=== PATIENT | male | born 1960 | race Caucasian/White ===

== ENCOUNTER 2017-05-19 13:09 | Inpatient (IN) | payer OTHER ==
[~2017-05-19] VITALS: Ht 182.9 cm; Wt 97.5 kg
[2017-05-19 14:18] LABS: HEMATOCRIT 41.9 % (38.0-50.0); MCH 26.4 PG (29.0-34.0); MCHC 32.9 G/DL (30.0-36.0); MCV 80.3 FL (86-99); RBC DIS.WIDTH-CV 16.5 % (11.8-14.6); RBC DIS.WIDTH-SD 47.6 % (39-53); RED BLOOD COUNT 5.22 M/uL (4.00-5.50); WHITE BLOOD COUNT 15.9 K/uL (4.1-10.2)
[2017-05-19] MEDS ORDERED: LOSARTAN POTASS50 MG PO (14:25)
[2017-05-19] MEDS ORDERED: LIPITOR40 MG PO (14:26)
[2017-05-19] MEDS ORDERED: METOPROLOL TART25 MG PO (14:27)
[2017-05-19] MEDS ORDERED: LASIX40 MG PO (14:27)
[2017-05-19] MEDS ORDERED: KLOR-CON20 MEQ PO (14:28)
[2017-05-19] MEDS ORDERED: WELLBUTRIN SR150 MG PO (14:28)
[2017-05-19] MEDS ORDERED: NAPROXEN500 MG PO (14:29)
[2017-05-19] MEDS ORDERED: OXYCODONE HCL30 MG PO (14:29)
[2017-05-19] MEDS ORDERED: DURAGESIC100 MCG TD (14:30)
[2017-05-19] MEDS ORDERED: DOLOPHINE HCL10 MG PO (14:31)
[2017-05-19] MEDS ORDERED: KEFLEX500 MG PO (14:32)
[2017-05-19 14:33] LABS: INTER. NORMALIZED RATIO 1.5; PROTHROMBIN TIME 15.3 (9.2-11.2); PTT 44.3 (25-32)
[2017-05-19 14:34] LABS: TROP-I INTERPRETATION NEGATIVE; TROPONIN-I 0.01 ng/mL (0.0-0.30)
[2017-05-19] MEDS ORDERED: BACTRIM,SEPT1 TABLET PO (14:34)
[2017-05-19] MEDS ORDERED: DOXYCYCLINE MO100 MG PO (14:35)
[2017-05-19 14:36] LABS: CHLORIDE 102 mEq/L (99-109); POTASSIUM 4.7 mEq/L (3.7-5.4); SODIUM 136 mEq/L (136-147)
[2017-05-19 14:39] LABS: GLUCOSE 106 mg/dL (70-99)
[2017-05-19 14:40] LABS: ANION GAP 16 MEQ/L (2-14); TOTAL BILIRUBIN 0.9 mg/dL (0.0-1.0)
[2017-05-19 14:42] LABS: ALKALINE PHOSPHATASE 103 IU/L (3-129); GFR ESTIMATE (CALCULATED) 42 mL/min/
[2017-05-19 14:43] LABS: UREA NITROGEN (BUN) 51 mg/dL (9-23)
[2017-05-19 16:28] LABS: ABS NEUTROPHIL COUNT 13.4; ANISOCYTOSIS 1+; ATYPICAL LYMPHOCYTE 1.8 %; BAND NEUTROPHILS 30.7 % (0-8.0); BURR CELLS 1+; EOSINOPHIL ABS CT 0; HYPOCHROMASIA 1+; INSTRUMENT ABS NEUTROPHIL CT 13.7 K/uL; LYMPHOCYTES 10.5 % (15.0-45.0); MACROCYTES 1+; MICROCYTOSIS 1+; PLAT.SUFFICIENCY INCREASED; PLATELET CLUMPS PRESENT - PLATELET COUNT APPEARS INCREASED; PLATELET COUNT UNABLE TO REPORT K/uL (156-360); POIKILOCYTOSIS 1+; POLYCHROMASIA 1+; SEG.NEUTROPHILS 53.5 % (46.0-76.0)
[2017-05-20] VITALS (23 sets, daily range): BP systolic 100–145; BP diastolic 56–75
[2017-05-20 02:36] LABS: CHLORIDE 111 mEq/L (99-109); MCH 26.1 PG (29.0-34.0); MCHC 32.1 G/DL (30.0-36.0); MCV 81.3 FL (86-99); MEAN PLAT.VOLUME 9.8 uM^3 (9.0-12.4); PLATELET COUNT 368 K/uL (156-360); RBC DIS.WIDTH-CV 16.6 % (11.8-14.6); RBC DIS.WIDTH-SD 49.2 % (39-53); SODIUM 138 mEq/L (136-147); WHITE BLOOD COUNT 14.7 K/uL (4.1-10.2)
[2017-05-20 02:37] LABS: MAGNESIUM 1.1 mg/dL (1.3-2.7); RED BLOOD COUNT 4.06 M/uL (4.00-5.50)
[2017-05-20 02:38] LABS: INTER. NORMALIZED RATIO 1.4; PROTHROMBIN TIME 14.8 (9.2-11.2); PTT 46.7 (25-32)
[2017-05-20 02:40] LABS: ANION GAP 7 MEQ/L (2-14)
[2017-05-20 02:43] LABS: UREA NITROGEN (BUN) 31 mg/dL (9-23)
[2017-05-20 02:47] LABS: GFR ESTIMATE (CALCULATED) > 59 mL/min/; GLUCOSE 69 mg/dL (70-99)
[2017-05-20 03:21] LABS: BASE EXCESS -6.2 mEq/L (-3 to +3); BICARBONATE 21.4 mEq/L (22-26); CARBOXY HGB 1.4 % (0-5); METHEMOGLOBIN 1.8 % (0-1.5); PCO2 51 mm Hg (35-45); PO2 84 mm Hg (80-100)
[2017-05-20 03:24] LABS: COMMENTS - BLOOD GASES A+C+; SITE LR; pH 7.23 (7.35-7.45)
[2017-05-20 03:25] LABS: DEVICE VENT; FI02 40 %; MECHANICAL RATE 16 resp/min; MODE AC; PEEP 5 CM/H20; TIDAL VOLUME 500 ML; TOTAL RESP RATE 16 resp/min
[2017-05-20 04:09] LABS: METH RESISTANT S AUREUS PCR NEGATIVE (NEGATIVE)
[2017-05-20 04:15] LABS: PROBE CHECK PASS; SPECIMEN PROCESSING CONTROL PASS
[2017-05-20 04:44] LABS: BASE EXCESS -4.7 mEq/L (-3 to +3); BICARBONATE 20.4 mEq/L (22-26); CARBOXY HGB 1.6 % (0-5); COMMENTS - BLOOD GASES A+C+; METHEMOGLOBIN 1.4 % (0-1.5); PCO2 37 mm Hg (35-45); PO2 79 mm Hg (80-100); SITE LR; pH 7.35 (7.35-7.45)
[2017-05-20 04:45] LABS: DEVICE VENT; FI02 40 %; MECHANICAL RATE 18 resp/min; MODE AC; PEEP 5 CM/H20; TIDAL VOLUME 600 ML; TOTAL RESP RATE 18 resp/min
[2017-05-20 10:59] LABS: ALKALINE PHOSPHATASE 75 IU/L (3-129)
[2017-05-20 11:06] LABS: TOTAL BILIRUBIN 0.7 mg/dL (0.0-1.0)
[2017-05-20 16:43] LABS: HEMATOCRIT 28.1 % (38.0-50.0); MCHC 33.1 G/DL (30.0-36.0); MCV 81.7 FL (86-99); MEAN PLAT.VOLUME 10.2 uM^3 (9.0-12.4); PLATELET COUNT 312 K/uL (156-360); RBC DIS.WIDTH-CV 16.7 % (11.8-14.6); RBC DIS.WIDTH-SD 49.3 % (39-53); RED BLOOD COUNT 3.44 M/uL (4.00-5.50)
[2017-05-20 17:02] LABS: ANION GAP 6 MEQ/L (2-14); CHLORIDE 110 MEQ/L (99-109); GFR ESTIMATE (CALCULATED) > 59 mL/min/; MAGNESIUM 1.8 mg/dl (1.3-2.7); POTASSIUM 3.3 MEQ/L (3.7-5.4); SAMPLE HEMOLYSIS CHECK 0; SAMPLE ICTERIC CHECK 0; SAMPLE LIPEMIA CHECK 0; SODIUM 139 MEQ/L (136-147); UREA NITROGEN (BUN) 23 mg/dL (9-23)
[2017-05-20 17:08] LABS: GLUCOSE 139 mg/dL (70-99)
[2017-05-20 19:17] LABS: POINT-OF-CARE METER ID UU13113748
[2017-05-20 20:38] LABS: POINT-OF-CARE METER ID UU13113748
[2017-05-21] VITALS (18 sets, daily range): BP systolic 131–155; BP diastolic 65–77
[2017-05-21 00:49] LABS: POINT-OF-CARE METER ID UU13113748
[2017-05-21 05:30] LABS: HEMATOCRIT 27.7 % (38.0-50.0); MCH 26.3 PG (29.0-34.0); MCHC 32.9 G/DL (30.0-36.0); MCV 80.1 FL (86-99); MEAN PLAT.VOLUME 10.3 uM^3 (9.0-12.4); NRBC (%) 0.2 /100 WBC (0-0); PLATELET COUNT 307 K/uL (156-360); RBC DIS.WIDTH-CV 16.4 % (11.8-14.6); RBC DIS.WIDTH-SD 47.8 % (39-53); RED BLOOD COUNT 3.46 M/uL (4.00-5.50); WHITE BLOOD COUNT 9.6 K/uL (4.1-10.2)
[2017-05-21 05:35] LABS: INTER. NORMALIZED RATIO 1.2; PROTHROMBIN TIME 12.7 (9.2-11.2)
[2017-05-21 05:44] LABS: ANION GAP 6 MEQ/L (2-14); CHLORIDE 111 MEQ/L (99-109); GFR ESTIMATE (CALCULATED) > 59 mL/min/; MAGNESIUM 1.8 mg/dl (1.3-2.7); POTASSIUM 3.6 MEQ/L (3.7-5.4); SAMPLE HEMOLYSIS CHECK 0; SAMPLE ICTERIC CHECK 0; SAMPLE LIPEMIA CHECK 0; SODIUM 142 MEQ/L (136-147); UREA NITROGEN (BUN) 19 mg/dL (9-23)
[2017-05-21 05:48] LABS: GLUCOSE 76 mg/dL (70-99)
[2017-05-21 11:14] LABS: POINT-OF-CARE METER ID UU13113731
[2017-05-22] VITALS (10 sets, daily range): BP systolic 130–171; BP diastolic 61–85
[2017-05-22 05:56] LABS: HEMATOCRIT 25.9 % (38.0-50.0); MCH 27.2 PG (29.0-34.0); MCV 79.9 FL (86-99); PLATELET COUNT 297 K/uL (156-360); RBC DIS.WIDTH-CV 16.5 % (11.8-14.6); RBC DIS.WIDTH-SD 47.8 % (39-53); RED BLOOD COUNT 3.24 M/uL (4.00-5.50); WHITE BLOOD COUNT 11.4 K/uL (4.1-10.2)
[2017-05-22 06:17] LABS: ALKALINE PHOSPHATASE 61 IU/L (3-129); ANION GAP 10 MEQ/L (2-14); CHLORIDE 111 MEQ/L (99-109); GFR ESTIMATE (CALCULATED) > 59 mL/min/; GLUCOSE 87 mg/dL (70-99); POTASSIUM 3.7 MEQ/L (3.7-5.4); SAMPLE HEMOLYSIS CHECK 0; SAMPLE ICTERIC CHECK 0; SAMPLE LIPEMIA CHECK 0; SODIUM 145 MEQ/L (136-147); TOTAL BILIRUBIN 0.5 MG/DL (0.0-1.0); UREA NITROGEN (BUN) 19 mg/dL (9-23)
[2017-05-22 06:21] LABS: INTER. NORMALIZED RATIO 1.2
[2017-05-22 06:22] LABS: ANION GAP 11 MEQ/L (2-14); C-REACTIVE PROTEIN 183.8 MG/L (0-10); CHLORIDE 110 MEQ/L (99-109); GFR ESTIMATE (CALCULATED) > 59 mL/min/; GLUCOSE 89 mg/dL (70-99); MAGNESIUM 2.1 mg/dl (1.3-2.7); POTASSIUM 3.3 MEQ/L (3.7-5.4); SAMPLE HEMOLYSIS CHECK 0; SAMPLE ICTERIC CHECK 0; SAMPLE LIPEMIA CHECK 0; SODIUM 145 MEQ/L (136-147); UREA NITROGEN (BUN) 20 mg/dL (9-23)
[2017-05-23] VITALS (8 sets, daily range): BP systolic 144–165; BP diastolic 50–74
[2017-05-23 06:04] LABS: HEMATOCRIT 25.7 % (38.0-50.0); MCH 26.5 PG (29.0-34.0); MCHC 33.5 G/DL (30.0-36.0); MCV 79.3 FL (86-99); MEAN PLAT.VOLUME 9.9 uM^3 (9.0-12.4); PLATELET COUNT 272 K/uL (156-360); RBC DIS.WIDTH-CV 16.3 % (11.8-14.6); RBC DIS.WIDTH-SD 46.3 % (39-53); RED BLOOD COUNT 3.24 M/uL (4.00-5.50); WHITE BLOOD COUNT 11.3 K/uL (4.1-10.2)
[2017-05-23 06:14] LABS: INTER. NORMALIZED RATIO 1.2; PROTHROMBIN TIME 12.2 (9.2-11.2)
[2017-05-23 06:30] LABS: ANION GAP 9 MEQ/L (2-14); CHLORIDE 111 MEQ/L (99-109); GFR ESTIMATE (CALCULATED) > 59 mL/min/; GLUCOSE 86 mg/dL (70-99); POTASSIUM 3.1 MEQ/L (3.7-5.4); SAMPLE HEMOLYSIS CHECK 0; SAMPLE ICTERIC CHECK 0; SAMPLE LIPEMIA CHECK 0; SODIUM 147 MEQ/L (136-147); UREA NITROGEN (BUN) 21 mg/dL (9-23)
[2017-05-24] VITALS (7 sets, daily range): BP systolic 134–169; BP diastolic 67–87
[2017-05-24 06:25] LABS: HEMATOCRIT 27.1 % (38.0-50.0); MCH 25.7 PG (29.0-34.0); MCHC 32.5 G/DL (30.0-36.0); MEAN PLAT.VOLUME 9.8 uM^3 (9.0-12.4); NRBC (%) 0.2 /100 WBC (0-0); PLATELET COUNT 280 K/uL (156-360); RBC DIS.WIDTH-CV 16.2 % (11.8-14.6); RBC DIS.WIDTH-SD 46.4 % (39-53); RED BLOOD COUNT 3.43 M/uL (4.00-5.50); WHITE BLOOD COUNT 14.8 K/uL (4.1-10.2)
[2017-05-24 06:52] LABS: INTER. NORMALIZED RATIO 1.1; PROTHROMBIN TIME 11.6 (9.2-11.2)
[2017-05-24 06:58] LABS: ANION GAP 10 MEQ/L (2-14); CHLORIDE 110 MEQ/L (99-109); GFR ESTIMATE (CALCULATED) > 59 mL/min/; GLUCOSE 91 mg/dL (70-99); POTASSIUM 3.3 MEQ/L (3.7-5.4); SAMPLE HEMOLYSIS CHECK 0; SAMPLE ICTERIC CHECK 0; SAMPLE LIPEMIA CHECK 0; SODIUM 145 MEQ/L (136-147); UREA NITROGEN (BUN) 19 mg/dL (9-23)
[2017-05-25] VITALS: BP 136/68
[2017-05-25 03:00] VITALS: BP 162/74
[2017-05-25 05:47] LABS: EOSINOPHIL (%) 3.6 % (0-5); EOSINOPHIL COUNT 0.6 K/uL (0-0.3); HEMATOCRIT 26.8 % (38.0-50.0); IMMATURE GRANULOCYTE (%) 3.3 % (0.0-0.7); IMMATURE GRANULOCYTE COUNT 0.5 K/uL; INSTRUMENT ABS NEUTROPHIL CT 11.1 K/uL; LYMPHOCYTE COUNT 1.7 K/uL (1.0-2.8); MCH 26.3 PG (29.0-34.0); MCHC 33.2 G/DL (30.0-36.0); MCV 79.3 FL (86-99); MEAN PLAT.VOLUME 9.9 uM^3 (9.0-12.4); MONOCYTE (%) 11.6 % (3-12); MONOCYTE COUNT 1.8 K/uL (0-0.8); NEUTROPHIL (%) 70.7 % (45-76); NEUTROPHIL COUNT 11.1 K/uL (1.8-6.4); NRBC (%) 0.2 /100 WBC (0-0); PLATELET COUNT 289 K/uL (156-360); RBC DIS.WIDTH-CV 16.2 % (11.8-14.6); RBC DIS.WIDTH-SD 46.3 % (39-53); RED BLOOD COUNT 3.38 M/uL (4.00-5.50); WHITE BLOOD COUNT 15.6 K/uL (4.1-10.2)
[2017-05-25 06:31] LABS: ANION GAP 9 MEQ/L (2-14); CHLORIDE 109 MEQ/L (99-109); GFR ESTIMATE (CALCULATED) > 59 mL/min/; GLUCOSE 106 mg/dL (70-99); POTASSIUM 3.6 MEQ/L (3.7-5.4); SAMPLE HEMOLYSIS CHECK 0; SAMPLE ICTERIC CHECK 0; SAMPLE LIPEMIA CHECK 0; SODIUM 140 MEQ/L (136-147); TOTAL BILIRUBIN 0.5 MG/DL (0.0-1.0); UREA NITROGEN (BUN) 20 mg/dL (9-23)
[2017-05-25 06:32] LABS: ALKALINE PHOSPHATASE 85 IU/L (3-129); ANION GAP 9 MEQ/L (2-14); CHLORIDE 110 MEQ/L (99-109); DIRECT BILIRUBIN 0.2 mg/dL (0.0-0.3); GFR ESTIMATE (CALCULATED) > 59 mL/min/; GLUCOSE 104 mg/dL (70-99); MAGNESIUM 2.3 mg/dl (1.3-2.7); POTASSIUM 3.6 MEQ/L (3.7-5.4); PREALBUMIN 5.8 mg/dL (10-40); SAMPLE HEMOLYSIS CHECK 0; SAMPLE ICTERIC CHECK 0; SAMPLE LIPEMIA CHECK 0; SODIUM 141 MEQ/L (136-147); TOTAL BILIRUBIN 0.5 MG/DL (0.0-1.0); TRIGLYCERIDES 89 MG/DL (Normal: <150); UREA NITROGEN (BUN) 20 mg/dL (9-23)
[2017-05-25 06:46] LABS: ALKALINE PHOSPHATASE 114 IU/L (3-129)
[2017-05-25 07:52] VITALS: BP 136/78
[2017-05-25 12:30] VITALS: BP 133/70
[2017-05-25 12:50] LABS: C DIFF TOXIN NEGATIVE (NEGATIVE)
[2017-05-25 12:57] LABS: PROBE CHECK PASS; SPECIMEN PROCESSING CONTROL PASS
[2017-05-25 16:00] VITALS: BP 132/68
[2017-05-25 19:40] VITALS: BP 120/74
[2017-05-26] VITALS (8 sets, daily range): BP systolic 134–151; BP diastolic 68–81
[2017-05-26 05:26] LABS: HEMATOCRIT 28.8 % (38.0-50.0); MCH 25.8 PG (29.0-34.0); MCV 78.3 FL (86-99); MEAN PLAT.VOLUME 9.8 uM^3 (9.0-12.4); NRBC (%) 0.1 /100 WBC (0-0); PLATELET COUNT 347 K/uL (156-360); RBC DIS.WIDTH-CV 16.2 % (11.8-14.6); RBC DIS.WIDTH-SD 45.7 % (39-53); RED BLOOD COUNT 3.68 M/uL (4.00-5.50); WHITE BLOOD COUNT 19.3 K/uL (4.1-10.2)
[2017-05-26 05:51] LABS: ANION GAP 9 MEQ/L (2-14); CHLORIDE 109 MEQ/L (99-109); GFR ESTIMATE (CALCULATED) > 59 mL/min/; GLUCOSE 112 mg/dL (70-99); MAGNESIUM 2.2 mg/dl (1.3-2.7); POTASSIUM 3.9 MEQ/L (3.7-5.4); SAMPLE HEMOLYSIS CHECK 0; SAMPLE ICTERIC CHECK 0; SAMPLE LIPEMIA CHECK 0; SODIUM 137 MEQ/L (136-147); UREA NITROGEN (BUN) 16 mg/dL (9-23)
[2017-05-27 04:32] VITALS: BP 130/78
[2017-05-27 05:25] LABS: HEMATOCRIT 29.6 % (38.0-50.0); MCH 25.9 PG (29.0-34.0); MCHC 33.1 G/DL (30.0-36.0); MCV 78.1 FL (86-99); MEAN PLAT.VOLUME 10.4 uM^3 (9.0-12.4); NRBC (%) 0.2 /100 WBC (0-0); PLATELET COUNT 415 K/uL (156-360); RBC DIS.WIDTH-CV 16.2 % (11.8-14.6); RBC DIS.WIDTH-SD 45.4 % (39-53); RED BLOOD COUNT 3.79 M/uL (4.00-5.50); WHITE BLOOD COUNT 21.7 K/uL (4.1-10.2)
[2017-05-27 05:59] LABS: ANION GAP 11 MEQ/L (2-14); CHLORIDE 108 MEQ/L (99-109); GFR ESTIMATE (CALCULATED) > 59 mL/min/; GLUCOSE 114 mg/dL (70-99); MAGNESIUM 2.2 mg/dl (1.3-2.7); POTASSIUM 4.2 MEQ/L (3.7-5.4); SAMPLE HEMOLYSIS CHECK 0; SAMPLE ICTERIC CHECK 0; SAMPLE LIPEMIA CHECK 0; SODIUM 138 MEQ/L (136-147); UREA NITROGEN (BUN) 16 mg/dL (9-23)
[2017-05-27 07:56] VITALS: BP 130/77
[2017-05-27 11:31] LABS: URINE UREA NITROGEN 16933 MG/24 HR
[2017-05-27 11:49] VITALS: BP 112/68
[2017-05-27 15:16] VITALS: BP 122/74
[2017-05-27 19:20] VITALS: BP 137/25
[2017-05-28 00:10] VITALS: BP 133/76
[2017-05-28 05:00] VITALS: BP 139/69
[2017-05-28 06:03] LABS: HEMATOCRIT 28.8 % (38.0-50.0); MCH 26.2 PG (29.0-34.0); MCHC 33.3 G/DL (30.0-36.0); MCV 78.5 FL (86-99); MEAN PLAT.VOLUME 10.5 uM^3 (9.0-12.4); PLATELET COUNT 459 K/uL (156-360); RBC DIS.WIDTH-CV 16.3 % (11.8-14.6); RBC DIS.WIDTH-SD 46.4 % (39-53); RED BLOOD COUNT 3.67 M/uL (4.00-5.50); WHITE BLOOD COUNT 21.3 K/uL (4.1-10.2)
[2017-05-28 06:27] LABS: ANION GAP 11 MEQ/L (2-14); CHLORIDE 109 MEQ/L (99-109); GFR ESTIMATE (CALCULATED) > 59 mL/min/; GLUCOSE 125 mg/dL (70-99); MAGNESIUM 2.2 mg/dl (1.3-2.7); POTASSIUM 4.3 MEQ/L (3.7-5.4); SAMPLE HEMOLYSIS CHECK 0; SAMPLE ICTERIC CHECK 0; SAMPLE LIPEMIA CHECK 0; SODIUM 138 MEQ/L (136-147); UREA NITROGEN (BUN) 22 mg/dL (9-23)
[2017-05-28 09:00] VITALS: BP 107/64
[2017-05-28 16:00] VITALS: BP 123/71
[2017-05-28 19:25] VITALS: BP 117/62
[2017-05-29 00:20] VITALS: BP 137/71
[2017-05-29 04:48] VITALS: BP 118/73
[2017-05-29 08:03] LABS: HEMATOCRIT 26.8 % (38.0-50.0); MCH 25.8 PG (29.0-34.0); MCHC 32.1 G/DL (30.0-36.0); MCV 80.5 FL (86-99); MEAN PLAT.VOLUME 10.7 uM^3 (9.0-12.4); PLATELET COUNT 514 K/uL (156-360); RBC DIS.WIDTH-CV 16.5 % (11.8-14.6); RBC DIS.WIDTH-SD 47.7 % (39-53); RED BLOOD COUNT 3.33 M/uL (4.00-5.50); WHITE BLOOD COUNT 19.2 K/uL (4.1-10.2)
[2017-05-29 08:53] LABS: ANION GAP 9 MEQ/L (2-14); CHLORIDE 107 MEQ/L (99-109); GFR ESTIMATE (CALCULATED) > 59 mL/min/; MAGNESIUM 2.1 mg/dl (1.3-2.7); POTASSIUM 4.8 MEQ/L (3.7-5.4); SAMPLE HEMOLYSIS CHECK 0; SAMPLE ICTERIC CHECK 0; SAMPLE LIPEMIA CHECK 0; SODIUM 138 MEQ/L (136-147); UREA NITROGEN (BUN) 25 mg/dL (9-23)
[2017-05-29 08:56] LABS: GLUCOSE 86 mg/dL (70-99)
[2017-05-29 20:22] VITALS: BP 111/64
[2017-05-30 00:43] VITALS: BP 117/68
[2017-05-30 05:22] VITALS: BP 138/72
[2017-05-30 07:30] LABS: HEMATOCRIT 26.5 % (38.0-50.0); MCH 25.5 PG (29.0-34.0); MCHC 31.7 G/DL (30.0-36.0); MCV 80.5 FL (86-99); MEAN PLAT.VOLUME 10.3 uM^3 (9.0-12.4); PLATELET COUNT 544 K/uL (156-360); RBC DIS.WIDTH-CV 16.3 % (11.8-14.6); RBC DIS.WIDTH-SD 47.7 % (39-53); RED BLOOD COUNT 3.29 M/uL (4.00-5.50); WHITE BLOOD COUNT 16.7 K/uL (4.1-10.2)
[2017-05-30 08:08] LABS: ANION GAP 8 MEQ/L (2-14); CHLORIDE 99 MEQ/L (99-109); GFR ESTIMATE (CALCULATED) > 59 mL/min/; GLUCOSE 94 mg/dL (70-99); POTASSIUM 4.4 MEQ/L (3.7-5.4); SAMPLE HEMOLYSIS CHECK 0; SAMPLE ICTERIC CHECK 0; SAMPLE LIPEMIA CHECK 0; UREA NITROGEN (BUN) 27 mg/dL (9-23)
[2017-05-30 08:09] LABS: SODIUM 130 MEQ/L (136-147)
[2017-05-30 09:49] VITALS: BP 125/67
[2017-05-30 12:40] VITALS: BP 108/65
[2017-05-30 15:57] VITALS: BP 113/65
[2017-05-30 20:45] VITALS: BP 110/65
[2017-05-31 00:56] VITALS: BP 116/61
[2017-05-31 05:04] VITALS: BP 114/59
[2017-05-31 07:10] VITALS: BP 117/59
[2017-05-31 07:26] LABS: ANION GAP 9 MEQ/L (2-14); CHLORIDE 102 MEQ/L (99-109); GFR ESTIMATE (CALCULATED) > 59 mL/min/; GLUCOSE 102 mg/dL (70-99); MAGNESIUM 1.9 mg/dl (1.3-2.7); POTASSIUM 4.6 MEQ/L (3.7-5.4); SAMPLE HEMOLYSIS CHECK 0; SAMPLE ICTERIC CHECK 0; SAMPLE LIPEMIA CHECK 0; SODIUM 134 MEQ/L (136-147); UREA NITROGEN (BUN) 30 mg/dL (9-23)
[2017-05-31 11:24] VITALS: BP 108/62
[2017-05-31 15:35] VITALS: BP 101/58
[2017-05-31 20:25] VITALS: BP 107/60
[2017-06-01] VITALS (8 sets, daily range): BP systolic 91–152; BP diastolic 50–68
[2017-06-01 06:34] LABS: HEMATOCRIT 24.2 % (38.0-50.0); MCH 25.5 PG (29.0-34.0); MCHC 31.8 G/DL (30.0-36.0); MCV 80.1 FL (86-99); PLATELET COUNT 524 K/uL (156-360); RBC DIS.WIDTH-CV 16.2 % (11.8-14.6); RBC DIS.WIDTH-SD 46.9 % (39-53); RED BLOOD COUNT 3.02 M/uL (4.00-5.50); WHITE BLOOD COUNT 14.8 K/uL (4.1-10.2)
[2017-06-02 04:29] VITALS: BP 108/52
[2017-06-02 08:14] VITALS: BP 114/58
[2017-06-02 12:12] VITALS: BP 108/62
[2017-06-02] MEDS ORDERED: METHADONE10 MG PO (16:08)
[2017-06-02] MEDS ORDERED: FLORASTOR250 MG PO (16:08)
[2017-06-02] MEDS ORDERED: PROTONIX IV40 MG IV (16:08)
== END 2017-06-02 17:55 | disposition home health service (06) | DRG 326 ==
LOC: EME 13:09 → 4WEST 17:43 → EDOF 17:43 → 4WEST 05-20 01:18 → 4EAST 05-24 20:14
PROVIDERS: Emergency Medicine; Physician Assistant; Surgery; Thoracic Surgery (Cardiothoracic Vascular Surgery)
DX: K26.5 Chronic or unspecified duodenal ulcer with perforation (principal); K65.9 Peritonitis, unspecified; J96.01 Acute respiratory failure with hypoxia; N17.0 Acute kidney failure with tubular necrosis; R57.1 Hypovolemic shock; T81.4XXA Infection following a procedure, initial encounter; B37.2 Candidiasis of skin and nail; K91.89 Other postprocedural complications and disorders of digestive system; K56.7 Ileus, unspecified; R19.7 Diarrhea, unspecified; T36.0X5A Adverse effect of penicillins, initial encounter; E43 Unspecified severe protein-calorie malnutrition; E83.51 Hypocalcemia; E83.42 Hypomagnesemia; E87.2 Acidosis; I10 Essential (primary) hypertension; E78.5 Hyperlipidemia, unspecified; I87.2 Venous insufficiency (chronic) (peripheral); L97.529 Non-pressure chronic ulcer of other part of left foot with unspecified severity; L89.622 Pressure ulcer of left heel, stage 2; B96.5 Pseudomonas (aeruginosa) (mallei) (pseudomallei) as the cause of diseases classified elsewhere; G89.29 Other chronic pain; M54.5 Low back pain; E66.9 Obesity, unspecified; Z96.649 Presence of unspecified artificial hip joint; F17.210 Nicotine dependence, cigarettes, uncomplicated; Z68.34 Body mass index [BMI] 34.0-34.9, adult; Z89.421 Acquired absence of other right toe(s); Z86.14 Personal history of Methicillin resistant Staphylococcus aureus infection; Z88.2 Allergy status to sulfonamides; Z88.1 Allergy status to other antibiotic agents; Z79.891 Long term (current) use of opiate analgesic
CPT/HCPCS: 36600; 71010; 71250; 74176; 76937; 80048; 80048 91; 80053; 80076; 81050; 82247; 82310; 82803; 82948; 83605; 83735; 83880; 84075; 84100; 84134; 84450; 84460; 84478; 84484; 84540; 84630 90; 85025; 85027; 85610; 85730; 86140; 87040; 87070; 87075; 87077; 87102; 87106; 87186; 87205; 87493; 87641; 88304; 88305; 93005; 94002; 94003; 97530 GO; 97530 GP; 99281; 99285; A6260; C9113; J0131; J0330; J0610; J0696; J1335; J1644; J2405; J2543; J2704; J3010; J3475; J3480; J7030; J7040; J7050; J7120; P9045

== ENCOUNTER → 2018-03-30 | Outpatient (CLI) | payer OTHER ==
[~2018-03-30] MED LIST: BACTRIM,SEPT1 TABLET PO; DOLOPHINE HCL10 MG PO; DOXYCYCLINE MO100 MG PO; DURAGESIC100 MCG TD; FLORASTOR250 MG PO; KEFLEX500 MG PO; KLOR-CON20 MEQ PO; LASIX40 MG PO; LIPITOR40 MG PO; LOSARTAN POTASS50 MG PO; METHADONE10 MG PO; METOPROLOL TART25 MG PO; NAPROXEN500 MG PO; OXYCODONE HCL30 MG PO; PROTONIX IV40 MG IV; WELLBUTRIN SR150 MG PO
== END | disposition home or self-care (01) ==
LOC: PICC 08:30
DX: I83.009 Varicose veins of unspecified lower extremity with ulcer of unspecified site (principal); Z88.1 Allergy status to other antibiotic agents
CPT/HCPCS: 76937